=== PATIENT | female | born 1980 | race African-American/Black ===

== ENCOUNTER 2017-07-07 15:59 | Emergency (ER) | payer BC, OTHER ==
[2017-07-07 16:08] VITALS: BP 132/94; PULSE 87; TEMP 98; BMI 60.5
--- NOTE | 2017-07-07 16:31 | PDOC ---
History of Present Illness <Eloisa Stubbs - Last Filed: 07/07/17 17:13> - General History Source: Patient Exam Limitations: No Limitations - History of Present Illness Initial Comments: 07/07/17 16:55 The patient is a 37 year old female, with significant past medical history of 5 vaginal births (most recent being a home 5 months ago with perineal tear that was not repaired by copper tapper), 2 previous perineal tears, HSV-2 genital herpes, who presents today with vaginal bleeding and stinging after intercourse this afternoon. The patient explains that she experienced sudden sharp pain during intercourse and noticed blood dripping from the vaginal area and on the toilet paper after intercourse. She noticed that there was a laceration similar to the perineal tear she had in the past. She notes that she is actively bleeding, but there is no pain at this time. She notes that her copper tapper did not repair the perineal tear that occurred after her last vaginal delivery, 5 months ago. Denies fever, chills, nausea, vomiting. Denies lightheadedness, dizziness. Denies abdominal pain, pelvic pain. Denies vaginal discharge. Denies dysuria, hematuria, flank pain. Allergies: none reported Surgical history: breast reduction (2 years ago) Social history: No tobacco use. Occasional alcohol use. No recreational drug use. <Gladis Toussaint - Last Filed: 07/07/17 17:15> - General Chief Complaint: Pain Stated Complaint: BLEEDING Time Seen by Provider: 07/07/17 16:06 Past History - Past Medical History Other medical history: HSV 2 - Immunization History Immunization Up to Date: Yes - Psycho/Social/Smoking Cessation Hx Anxiety: No Suicidal Ideation: No Smoking History: Never smoked Have you smoked in the past 12 months: No Hx Alcohol Use: No Drug/Substance Use Hx: No Substance Use Type: None <Eloisa Stubbs - Last Filed: 07/07/17 17:13> <Gldais Toussaint - Last Filed: 07/07/17 17:15> - Past Medical History Allergies/Adverse Reactions: Allergies Allergy/AdvReac Type Severity Reaction Status Date / Time No Known Allergies Allergy Verified 07/07/17 16:06 Home Medications: Ambulatory Orders NK [No Known Home Medication] 07/07/17 Review of Systems - Review of Systems Able to Perform ROS?: Yes Comments:: 07/07/17 16:56 GENERAL/CONSTITUTIONAL: No fever or chills. No weakness. GENITOURINARY: +perineal laceration with active bleeding. No dysuria, frequency , or change in urination. MUSCULOSKELETAL: No joint or muscle swelling or pain. No neck or back pain. SKIN: No rash <Gladis Toussaint - Last Filed: 07/07/17 17:15> *Physical Exam - Vital Signs Last Vital Signs Temp Pulse Resp BP Pulse Ox 98 F 87 18 132/94 100 07/07/17 16:05 07/07/17 16:05 07/07/17 16:05 07/07/17 16:05 07/07/17 16:05 - Physical Exam Comments: GENERAL: Awake, alert, and fully oriented, in no acute distress : +1.5 cm irregular L-shaped laceration from the perineum into the L-sided vaginal mucosa with oozing of blood. No discharge. +Prior scarring. SKIN: Warm, Dry, normal turgor, no rashes or lesions noted. <Eloisa Stubbs - Last Filed: 07/07/17 17:13> - Vital Signs Last Vital Signs Temp Pulse Resp BP Pulse Ox 98 F 87 18 132/94 100 07/07/17 16:05 07/07/17 16:05 07/07/17 16:05 07/07/17 16:05 07/07/17 16:05 <Gladis Toussaint - Last Filed: 07/07/17 17:15> Procedures - Laceration/Wound Repair Left Posterior Perineum Wound Length: to 2.5 cm Wound Explored: clean, no foreign body present Wound's Depth, Shape: irregular Anesthesia: 1% Lidocaine Amount of Anesthetic (ccs): 2 Wound Repaired With: Sutures Suture Size/Type: 4:0 (polysorb) Number of Sutures: 5 Sterile Dressing Applied: Yes Progress: 07/07/17 17:09 Irregular L-shaped wound extending into the vaginal mucosa. Five sutures placed , simple interrupted. +Hemostasis. Patient tolerated well. <Eloisa Stubbs - Last Filed: 07/07/17 17:13> *DC/Admit/Observation/Transfer - Discharge Dispostion Admit: No <Eloisa Stubbs - Last Filed: 07/07/17 17:13> - Attestations Scribe Attestion: 07/07/17 16:57 Documentation prepared by JASON Reynolds, acting as medical aides teacher for Eloisa Stubbs MD. <Gladis Toussaint - Last Filed: 07/07/17 17:15> Diagnosis at time of Disposition: Perineal laceration Qualifiers: Encounter type: initial encounter Qualified Code(s): S31.41XA - Laceration without foreign body of vagina and vulva, initial encounter - Discharge Dispostion Disposition: HOME Condition at time of disposition: Stable - Patient Instructions Printed Discharge Instructions: How to Care for Absorbable Sutures Additional Instructions: Follow up with your hotel or motel room service supervisor within 1 week. Do not resume any sexual activity without consulting with your hotel or motel room service supervisor to evaluate the wound. Return to the ER for swelling, pain, redness, or drainage of pus. A small amount of bleeding is normal, but if there is a gush of blood, return to the ER immediately.
== END 2017-07-07 17:30 | disposition home or self-care (01) ==
LOC: FER 15:59
PROC: 0HQ9XZZ Repair Perineum Skin, External Approach (ICD-10-PCS; principal; 2017-07-07)
DX: S31.41XA Laceration without foreign body of vagina and vulva, initial encounter (principal); X58.XXXA Exposure to other specified factors, initial encounter; Y93.89 Activity, other specified; Y92.9 Unspecified place or not applicable
CPT/HCPCS: 99282-25

== ENCOUNTER 2018-06-19 02:49 | Emergency (ER) | payer BC, OTHER ==
--- NOTE | 2018-06-19 02:50 | PDOC ---
History of Present Illness - General Chief Complaint: Ear Problem Stated Complaint: RT EAR PAIN Time Seen by Provider: 06/19/18 02:50 History Source: Patient Exam Limitations: No Limitations - History of Present Illness Initial Comments: 06/19/18 03:00 Ms Clemente is a 38 yo F who presents to the ER for evaluation of severe Right ear pain HPI began 1 [place] ago [place], she felt the water get pushed in to her ear She had a strange sensation in the ear since then but thought it would go away She PMH: denies PSH: denies Meds: Augmentin, Ciprodex PHYSICAL EXAM General: Appears well, non-toxic. Skin: Warm and dry. No lesions or rashes of exposed skin appreciated. Head is symmetrical, midline, NC/AT. Ears are symmetrical without erythema or ecchymosis. () side External auditory canal is edematous and erythematous (W/ or w/o discharge) and pain with tragal/ pinna pull, other side is wnl. TM's visualized bilaterally, opaque in color, no bulging, no retractions. No tenderness to palpation of the mastoid. Eyes symmetrical. Conjunctivae pink. Sclerae white. Corneas clear. PERRLA, EOM intact Nose without any discharge or swelling. Mouth: Oral mucosa is moist and pink. There is no exudate, erythema of the oropharynx, airway is patent. Neck: Symmetrical, supple. Trachea is midline. No anterior cervical lymphadenopathy is appreciated. Respiratory: CTA B/L, no W/R/R Neurologic: The patient is awake, alert, oriented x3. Gross motor and sensory exam is found to be intact. 06/19/18 03:08 Past History - Past Medical History Allergies/Adverse Reactions: Allergies Allergy/AdvReac Type Severity Reaction Status Date / Time No Known Allergies Allergy Verified 07/07/17 16:06 Home Medications: Ambulatory Orders Ciprofloxacin HCl/Dexameth [Ciprodex Otic Suspension] 4 drop AD BID #1 bottle - Immunization History Immunization Up to Date: Yes - Suicide/Smoking/Psychosocial Hx Smoking History: Never smoked Have you smoked in the past 12 months: No Hx Alcohol Use: No Drug/Substance Use Hx: No Substance Use Type: None Medical Decision Making - Medical Decision Making 06/19/18 03:06 Complaint: [] y/o [male,female] w/ complaints of []sided ear pain x [# of days] , denies fever Vitals: wnl Clinical Impression: 1) Ear Pain, 2) Otitis externa. I do not suspect AOM or mastoiditis Treatment provided: 1) Take Tylenol or motrin at home PRN, 2) Cortisporin drops x 10 days Follow up instructions: Pcp within 2 days Patient advised to go to emergency room if they develop any new or worsening symptoms Patient was provided with written instructions. expressed understanding and agreement with the above stated plan The likelihood of other entities in the differential is insufficient to justify any further testing for them. This was explained to the patient. The patient was advised that persistent or worsening symptoms would require further evaluation. Please note this report has been produced using speech recognition software and may contain errors related to that system including errors in grammar, punctuation, and spelling, as well as words and phrases that may be inappropriate. If there are questions or concerns please feel free to contact me for clarification. *DC/Admit/Observation/Transfer Diagnosis at time of Disposition: Otitis externa of right ear Qualifiers: Otitis externa type: swimmer's ear Chronicity: acute Qualified Code(s): H60.331 - Swimmer's ear, right ear - Discharge Dispostion Disposition: HOME Condition at time of disposition: Stable Decision to Admit order: No - Referrals Referrals: Thania Bates MD [Primary Care Provider] - Rojelio Pimentel MD [Staff Physician] - - Patient Instructions Printed Discharge Instructions: DI for Otitis Externa Additional Instructions: Bryn Thank you for coming in to the ER today Please call in the morning to see the ENT specialist Please take motrin 600mg (3 tablets) and Tylenol 1000mg (2 tablets of the extra strength tylenol) in alternation EVERY 4 hours Please continue using ear drops Return to the ER should your symptoms worsen, if you can't get follow up with the ENT doctor, if you have any other concerns or complaints - Post Discharge Activity
[2018-06-19 02:58] VITALS: BP 125/82; PULSE 74; TEMP 98.7; BMI 27.4
== END 2018-06-19 03:17 | disposition home or self-care (01) ==
LOC: FER 02:49
DX: H60.331 Swimmer's ear, right ear (principal)
CPT/HCPCS: 99281-25

== ENCOUNTER 2019-09-27 21:01 | Emergency (ER) | payer BC, OTHER ==
[2019-09-27 21:07] VITALS: BP 126/76; PULSE 87; TEMP 98.6; BMI 29.6
--- NOTE | 2019-09-28 00:33 | PDOC ---
Documentation entered by Esdras Moran SCRIBE, acting as scribe for Gerda Arcos MD. Gerda Arcos MD: This documentation has been prepared by the Dean garcia Aiswarya, SCRIBE, under my direction and personally reviewed by me in its entirety. I confirm that the documentation accurately reflects all work, treatment, procedures, and medical decision making performed by me. History of Present Illness - General Chief Complaint: Allergic Reaction Stated Complaint: ALLERGIC REACTION Time Seen by Provider: 09/27/19 21:03 - History of Present Illness Initial Comments: This 39-year-old woman with no significant past medical history presents with 3- day history of urticaria. The patient describes (and shows cell phone pictures of) erythematous maculopapular, pruritic rash of her arms, torso and legs which first developed 3 days ago. She had no lip/tongue swelling or sensation of difficulty swallowing or breathing. No wheezing or abnormal breath sounds heard. Patient took diphenhydramine with resolution of the rash until the following day when it recurred. Diphenhydramine was effective for resolution again; when rash recurred today (again responsive to diphenhydramine), patient presents for evaluation. She has no known history of allergies; she denies exposure to any new foods/medications/supplements. There has been no change in her environment at home or at work (she works in the school). No recent febrile illness or unusual stress. She denies any shortness of breath or difficulty swallowing during any of the time that she has had the rash. No recent travel no daily medications No known allergies Past History - Past Medical History Allergies/Adverse Reactions: Allergies Allergy/AdvReac Type Severity Reaction Status Date / Time No Known Allergies Allergy Verified 09/27/19 21:02 Home Medications: Ambulatory Orders Valacyclovir HCl [Valtrex] 1,000 mg PO ASDIR 09/27/19 COPD: No Other medical history: HAS IUD - Immunization History Immunization Up to Date: Yes - Psycho Social/Smoking Cessation Hx Smoking History: Current some day smoker Have you smoked in the past 12 months: Yes Information on smoking cessation initiated: Yes Hx Alcohol Use: (rarely) Drug/Substance Use Hx: No Substance Use Type: None Review of Systems - Review of Systems Able to Perform ROS?: Yes Comments:: 12 point review of systems is negative except for what is noted in the history of present illness *Physical Exam - Vital Signs Last Vital Signs Temp Pulse Resp BP Pulse Ox 98.6 F 87 18 126/76 97 09/27/19 21:01 09/27/19 21:01 09/27/19 21:01 09/27/19 21:01 09/27/19 21:01 - Physical Exam Comments: GENERAL: Adult female, alert and oriented x3, no acute distress HEAD: Normal with no signs of trauma. EYES: PERRLA, EOMI, sclera anicteric, conjunctiva clear. ENT: Ears normal, nares patent, oropharynx clear without exudates. Moist mucous membranes. NECK: Normal range of motion, supple without lymphadenopathy, JVD, or masses. No stridor LUNGS: Breath sounds equal, clear to auscultation bilaterally. No wheezes, and no crackles. HEART:Regular rate and rhythm, normal S1 and S2 without murmur, rub or gallop. ABDOMEN:.normal bowel sounds No guarding,tenderness or rebound.No masses No distention. EXTREMITIES: Normal range of motion, no edema. No clubbing or cyanosis. No erythema, or tenderness. NEUROLOGICAL: Cranial nerves II through XII grossly intact. Normal speech. No focal neurological deficits. SKIN: Warm, Dry, normal turgor, no rashes or lesions noted. ED Progress Note - Progress Note Progress Note: this otherwise healthy 39-year-old woman presents with a history of rash consistent with urticaria which has occurred daily for the last 3 days. The rash is responsive to diphenhydramine. There has been no facial edema or symptoms consistent with airway compromise. No previous history of any allergies noted. Exam as noted, is normal without evidence of rash at this time. Patient presented for evaluation and advice regarding further work-up of her apparent allergy. She was advised that antihistamines are certainly the best idea for first-line care of the urticaria with work-up by an brim ironer hand the next step. She can also use nonsedating antihistamines for daytime use. Patient's PMD is part of [facility]; she states that she will follow-up with an brim ironer hand in the [facility] system. She should return to the ER immediately if she has any lip or tongue swelling or has any sensation of difficulty swallowing /difficulty breathing Discharge - Discharge Information Problems reviewed: Yes Clinical Impression/Diagnosis: Urticaria Condition: Stable Disposition: HOME - Follow up/Referral Referrals: Thania Bates MD [Primary Care Provider] - - Patient Discharge Instructions Patient Printed Discharge Instructions: Hives Additional Instructions: Continue Benadryl or nonsedating antihistamine (Claritin/Zyrtec/Bessy) as needed for hives Return to ER immediately if you have tongue/lip swelling or have sensation of difficulty swallowing/breathing Follow-up with brim ironer hand at [facility] within the next 2 to 3 days - Post Discharge Activity
== END 2019-09-27 23:16 | disposition home or self-care (01) ==
LOC: FER 21:01
DX: L50.9 Urticaria, unspecified (principal); F17.210 Nicotine dependence, cigarettes, uncomplicated
CPT/HCPCS: 99282-25

== ENCOUNTER 2022-05-06 18:20 | Emergency (ER) | payer BC, OTHER ==
[2022-05-06 18:39] VITALS: BP 145/92; PULSE 75; TEMP 98.9; BMI 31.9
[2022-05-06] MEDS ORDERED: ONDANSETRON 4 MG/2 ML VIAL IVPUSH ONE (18:42)
[2022-05-06] MEDS ORDERED: ACETAMINOPHEN 1000 MG/100 ML BAG IVPB ONE (18:42)
[2022-05-06] MEDS ORDERED: SODIUM CHLORIDE 1,000 ML IV STA (18:42)
[2022-05-06 18:51] LABS: HCG,QUALITATIVE URINE Negative
[2022-05-06] MEDS ORDERED: ONDANSETRON 4 MG/2 ML VIAL ONE (19:04)
[2022-05-06] MEDS ORDERED: ACETAMINOPHEN INJECTION 100 ML IVPB ONE (19:04)
[2022-05-06 19:29] LABS: HEMATOCRIT 41.4 % (32.4-45.2); HEMOGLOBIN 14.2 G/dL (10.7-15.3); MCH 33.5 pg (25.7-33.7); MCHC 34.4 g/dl (32.0-36.0); MEAN CELL VOLUME 97.5 fl (80-96); MEAN PLT VOLUME 7.4 fl (7.5-11.1); PLATELET COUNT 274.9 10^3/uL (134-434); RBC 4.25 10^6/uL (3.60-5.2); RDW 13.6 % (11.6-15.6); WHITE BLOOD COUNT 9.6 10^3/uL (4.0-10.8)
[2022-05-06 19:34] LABS: EPITHELIAL CELLS FEW /hpf
[2022-05-06 19:35] LABS: PLATELET ESTIMATE ADEQUATE
[2022-05-06 19:41] LABS: BILIRUBIN,TOTAL 0.7 mg/dl (0.2-1); CALCIUM 9.4 mg/dl (8.5-10); CREATININE 0.8 mg/dl (0.55-1.3); TOT PROT 7.1 g/dl (6.4-8.2)
== END 2022-05-06 20:48 | disposition home or self-care (01) ==
LOC: FER 18:20
PROC: 3E033GC Introduction of Other Therapeutic Substance into Peripheral Vein, Percutaneous Approach (ICD-10-PCS; principal; 2022-05-06)
DX: R10.31 Right lower quadrant pain (principal)
CPT/HCPCS: 36415; 74176-TC; 80053; 81003; 81015; 84703; 85027; 87077; 87086; 99285-25

== ENCOUNTER 2023-06-13 23:52 | Emergency (ER) | payer OTHER ==
[2023-06-13 23:59] VITALS: BP 133/92; PULSE 75; RESP 16; TEMP 98.2; BMI 20.7
[2023-06-14] MEDS ORDERED: PHENAZOPYRIDINE HCL 100 MG TABLET (FP) PO ONE (00:06)
[2023-06-14] MEDS ORDERED: PHENAZOPYRIDINE HCL 100 MG TABLET (FP) ONE (00:09)
[2023-06-14 01:45] LABS: EPI CELLS 19 /uL (0-25.1); HYALINE CASTS 1 /uL (0-3.1); PH,URINE 6.5 (5.0-8.0); URINE APPEARANCE CLEAR; URINE BACTERIA 38 /uL (0-1359); URINE BILIRUBIN NEGATIVE (NEGATIVE); URINE COLOR YELLOW; URINE GLUCOSE (UA) NEGATIVE (NEGATIVE); URINE KETONE TRACE (NEGATIVE); URINE LEUK ESTERASE 1+ (NEGATIVE); URINE NITRITE NEGATIVE (NEGATIVE); URINE PROTEIN NEGATIVE (NEGATIVE); URINE RBC 64 /uL (0-23.9); URINE WBC 93 /uL (0-25.8)
[2023-06-14] MEDS ORDERED: NITROFURANTOIN MACROCRYSTAL 50 MG CAPSULE (FP) PO SCH ×2 (02:00→02:15)
[2023-06-14] MEDS ORDERED: NITROFURANTOIN MACROCRYSTAL 50 MG CAPSULE (FP) ONE (02:02)
== END 2023-06-14 02:08 | disposition home or self-care (01) ==
LOC: FER 23:52
DX: N30.90 Cystitis, unspecified without hematuria (principal); R30.9 Painful micturition, unspecified; R35.0 Frequency of micturition
CPT/HCPCS: 81003; 87086; 99283-25

== ENCOUNTER 2025-01-24 03:04 | Emergency (ER) | payer OTHER ==
[2025-01-24 03:16] VITALS: BP 134/96; PULSE 75; RESP 16; TEMP 97.5; BMI 31.8
[2025-01-24] MEDS ORDERED: SULFAMETHOXAZOLE/TRIMETHOPRIM 800MG/160MG D.S. TABLET ONE (03:22)
[2025-01-24] MEDS: SULFAMETHOXAZOLE/TRIMETHOPRIM 800MG/160MG D.S. TABLET PO ONE (03:25)
== END 2025-01-24 03:29 | disposition home or self-care (01) ==
LOC: FER 03:04
DX: L03.116 Cellulitis of left lower limb (principal)
CPT/HCPCS: 99283-25